=== PATIENT | male | born 1970 | race Caucasian/White ===

== ENCOUNTER 2018-08-21 10:41 | Emergency (ER) | payer BC, OTHER ==
[2018-08-21 11:13] VITALS: TEMP 97.9; O2SAT 97
[2018-08-21] MEDS ORDERED: Sodium Chloride 0.9% 500 ML IV STA (12:52)
[2018-08-21] MEDS ORDERED: Enalaprilat 2.5 MG/2 ML IV STA (12:53)
--- NOTE | 2018-08-21 12:53 | C.PDOC ---
History Of Present Illness 48 year old male, whose PMHx includes Hypertension, presents to the ED for evaluation of headache and elevated blood pressure. Patient was evaluated by his PMD, Dr. Sotkes, one week ago and given prescriptions for Tramadol and Sanchez karl. Patient states he only filled the prescription for Tramadol because he thought that was his blood pressure medication. Patient developed headache, for which he has been drinking 4-5 cups of coffee and taking Excedrin. He presents to the ED for evaluation of persistent headache and elevated blood pressure. He denies fever, chills, vision change, dizziness, nausea, vomiting, or weakness. Time Seen by Provider: 08/21/18 11:41 Chief Complaint (Nursing): High Blood Pressure History Per: Patient History/Exam Limitations: no limitations Onset/Duration Of Symptoms: Days Current Symptoms Are (Timing): Still Present Associated Symptoms: Headache. denies: Dizziness, Focal Weakness Exacerbating Factor(s): Pos: Recently Missed Doses Of Medication Additional History Per: Patient Past Medical History Reviewed: Historical Data, Nursing Documentation, Vital Signs Vital Signs: Last Vital Signs Temp 97.9 F 08/21/18 11:08 Pulse 73 08/21/18 11:45 Resp 20 08/21/18 11:08 BP 177/107 H 08/21/18 11:45 Pulse Ox 97 08/21/18 11:08 - Medical History PMH: Gastritis, HTN Surgical History: No Surg Hx Family History: States: Unknown Family Hx - Social History Hx Alcohol Use: No Hx Substance Use: No - Immunization History Hx Tetanus Toxoid Vaccination: Yes Hx Influenza Vaccination: No Hx Pneumococcal Vaccination: No Review Of Systems Constitutional: Negative for: Fever, Chills Eyes: Negative for: Vision Change Cardiovascular: Positive for: Other (elevated blood pressure ) Gastrointestinal: Negative for: Nausea, Vomiting Neurological: Positive for: Headache. Negative for: Weakness, Dizziness Physical Exam - Physical Exam Appears: Non-toxic, No Acute Distress Skin: Normal Color, Warm, Dry Head: Atraumatic, Normacephalic Eye(s): bilateral: Normal Inspection Oral Mucosa: Moist Neck: Supple Chest: Symmetrical, No Deformity, No Tenderness Cardiovascular: Rhythm Regular, No Murmur Respiratory: Normal Breath Sounds, No Rales, No Rhonchi, No Wheezing Extremity: Normal ROM, Capillary Refill (less than 2 seconds ) Neurological/Psych: Oriented x3, Normal Speech, Normal Cognition ED Course And Treatment - Laboratory Results Result Diagrams: 08/21/18 13:27 08/21/18 13:27 O2 Sat by Pulse Oximetry: 97 (on RA) Pulse Ox Interpretation: Normal Progress Note: Patient was evaluated by Dr. Stokes in the ED, who instructs patient to follow up with him after he receives treatment in the ED. Bloodwork, urinalysis, CT Head ordered. Vasotec IV and IV Fluids given. On reassessment, patient is resting comfortably, showing no signs of distress and reports an improvement in his symptoms. Patient is stable for discharge and is advised to follow up with Dr. Stokes as instructed. Disposition - Disposition Referrals: Fransisca Stokes MD [Staff Provider] - Disposition: HOME/ ROUTINE Disposition Time: 15:19 Condition: STABLE Additional Instructions: Follow up with within 1-2 days. Take your blood pressure medications every day as instructed. Avoid products (food or drinks) and medications containing caffeine and chocolate. Return to ED if feel worse. Instructions: High Blood Pressure in Adults, Headache, Adult Forms: [facility] (Cymro) Print Language: CAY[place] ISLANDER - Clinical Impression Clinical Impression: Hypertension, Headache - PA / PATTERNATOR / Resident Statement MD/DO has reviewed & agrees with the documentation as recorded. - Scribe Statement The provider has reviewed the documentation as recorded by the Scribe (Dee Wolf) All medical record entries made by the Scribe were at my direction and personally dictated by me. I have reviewed the chart and agree that the record accurately reflects my personal performance of the history, physical exam, medical decision making, and the department course for this patient. I have also personally directed, reviewed, and agree with the discharge instructions and disposition.
[2018-08-21] MEDS ORDERED: Enalaprilat 2.5 MG/2 ML ONE (13:25)
[2018-08-21 13:38] LABS: URINE BACTERIA RARE (<OCC); URINE BILIRUBIN NEGATIVE (NEGATIVE); URINE BLOOD 1+ (NEGATIVE); URINE CLARITY Clear (Clear); URINE COLOR Straw (YELLOW); URINE GLUCOSE (UA) NORMAL (Normal); URINE LEUKOCYTE ESTERASE NEG Leu/uL (Negative); URINE PROTEIN NEGATIVE (NEGATIVE); URINE UROBILINOGEN NORMAL mg/dL (0.2-1.0)
[2018-08-21 13:42] LABS: BASO % 0.5 % (0.0-2.0); EOS % 0.6 % (0.0-4.0); HEMOGLOBIN 17.9 g/dL (12.0-18.0); LYMPH # 1.1 K/uL (1.0-4.3); LYMPH % 23.4 % (20.0-40.0); MEAN CELL VOLUME 85.2 fL (80.0-94.0); MEAN CORPUSCULAR HEMOGLOBIN 29.4 pg (27.0-31.0); MEAN CORPUSCULAR HGB CONC 34.5 g/dL (33.0-37.0); MEAN PLATELET VOLUME 9.1 fL (7.2-11.7); MONO # 0.4 K/uL (0.0-0.8); MONO % 8.9 % (0.0-10.0); NEUT # 3.3 K/uL (1.8-7.0); NEUT % 66.6 % (50.0-75.0); NRBC % 0.1 % (0.0-2.0); RBC 6.11 Mil/uL (4.40-5.90); RED CELL DISTRIBUTION WIDTH 14.5 % (11.5-14.5); WHITE BLOOD COUNT 4.9 K/uL (4.8-10.8)
[2018-08-21 13:46] LABS: BLOOD UREA NITROGEN 13 mg/dL (9-20); GFR NON-AFRICAN AMERICAN > 60
[2018-08-21 13:47] LABS: ALB/GLOB RATIO 1.8 (1.0-2.1); ALBUMIN 4.8 g/dL (3.5-5.0); ALT/SGPT 62 U/L (21-72); AST/SGOT 42 U/L (17-59); CALCIUM 9.5 mg/dl (8.6-10.4)
--- NOTE | 2018-08-21 14:24 | CT ---
Date of service: 08/21/2018 PROCEDURE: CT HEAD WITHOUT CONTRAST. HISTORY: headache, elevated BP COMPARISON: None available. TECHNIQUE: Axial computed tomography images were obtained through the head/brain without intravenous contrast. Radiation dose: Total exam DLP = 1077.20 mGy-cm. This CT exam was performed using one or more of the following dose reduction techniques: Automated exposure control, adjustment of the mA and/or kV according to patient size, and/or use of iterative reconstruction technique. FINDINGS: HEMORRHAGE: No intracranial hemorrhage. BRAIN: Frank-white matter differentiation is preserved. There is no mass, mass effect or abnormal extra-axial fluid collection. There is no territorial infarction. The midline sagittal structures are normal. VENTRICLES: The ventricles are normal in size, shape and configuration. CALVARIUM: The skull base and calvarium are normal. PARANASAL SINUSES: Predominantly clear. MASTOID AIR CELLS: Predominantly clear. OTHER FINDINGS: None. IMPRESSION: No acute intracranial abnormality.
[2018-08-21] MEDS ORDERED: Oxycodone/Acetaminophen 5/325 mg Tab PO STA (14:31)
[2018-08-21] MEDS ORDERED: Oxycodone/Acetaminophen 5/325 mg Tab ONE (14:54)
[2018-08-21 16:24] VITALS: BP 137/84; PULSE 74; RESP 18
--- NOTE | 2018-08-24 10:50 | CARD ---
APPROVED REPORT Date of service: 08/21/2018 EKG Measurement Heart [id number] <Conclusion> Normal sinus rhythm Possible Left atrial enlargement Septal infarct, age undetermined Abnormal ECG
== END 2018-08-21 16:24 | disposition home or self-care (01) ==
LOC: C.ER 10:41
DX: I10 Essential (primary) hypertension (principal); R51 Headache
CPT/HCPCS: 70450; 80053; 81001; 85025; 99285; J7040

== ENCOUNTER 2019-02-03 12:45 | Emergency (ER) | payer BC ==
[2019-02-03 13:05] VITALS: RESP 18
[2019-02-03] MEDS ORDERED: Labetalol 25mg/5ml Syringe IVP STA (14:12)
--- NOTE | 2019-02-03 14:18 | C.PDOC ---
History Of Present Illness 48 y/o male with a PMHx of HTN presents to the ED for evaluation of elevated blood pressure since yesterday. Patient is currently on Losartan and admits that last week he was on a road trip and forgot to take his medication for the week. During that time patient reports drinking a lot of coffee and eating fried food. He resumed taking his medication yesterday, but noticed his pressure was markedly elevated yesterday and again today, prompting this visit. Patient notes he has had similar ED visits for this in the past. He additionally complains of low back pain for the past 3 days. Patient reports decreased urine output and is concerned about his kidneys. He denies prior hx of kidney stones. Otherwise he denies any dysuria, hematuria, fevers, chills, chest pain, SOB, headache, palpitations, dizziness, blurred or double vision. Time Seen by Provider: 02/03/19 14:01 Chief Complaint (Nursing): High Blood Pressure History Per: Patient History/Exam Limitations: no limitations Onset/Duration Of Symptoms: Days Current Symptoms Are (Timing): Still Present Quality Of Symptoms: Asymptomatic Exacerbating Factor(s): Pos: Injestion Of Caffeinated Beverages, Increased Salt/Salty Foods Past Medical History Reviewed: Historical Data, Nursing Documentation, Vital Signs Vital Signs: Last Vital Signs Temp 97.4 F L 02/03/19 13:01 Pulse 73 02/03/19 13:01 Resp 18 02/03/19 13:01 BP 183/106 H 02/03/19 13:01 Pulse Ox 97 02/03/19 13:01 - Medical History PMH: Gastritis, HTN Other PMH: Varicocele Family History: States: Unknown Family Hx - Social History Hx Alcohol Use: No Hx Substance Use: No - Immunization History Hx Tetanus Toxoid Vaccination: Yes Hx Influenza Vaccination: No Hx Pneumococcal Vaccination: No Review Of Systems Except As Marked, All Systems Reviewed And Found Negative. Constitutional: Negative for: Fever, Chills, Sweats Eyes: Negative for: Vision Change ENT: Negative for: Nose Congestion Cardiovascular: Negative for: Chest Pain, Palpitations Respiratory: Negative for: Shortness of Breath Gastrointestinal: Positive for: Abdominal Pain (suprapubic). Negative for: Nausea, Vomiting Genitourinary: Positive for: Other (Decreased urine output). Negative for: Dysuria, Hematuria Musculoskeletal: Positive for: Back Pain Skin: Negative for: Rash Neurological: Negative for: Weakness, Numbness, Change in Speech, Headache, Dizziness Physical Exam - Physical Exam Appears: Well, Non-toxic, No Acute Distress Skin: Normal Color, Warm, Dry Head: Atraumatic, Normacephalic Eye(s): bilateral: Normal Inspection, PERRL, EOMI Nose: Normal Oral Mucosa: Moist Neck: Normal ROM Chest: Symmetrical, No Deformity, No Tenderness Cardiovascular: Rhythm Regular, No Murmur Respiratory: Normal Breath Sounds, No Accessory Muscle Use, No Wheezing Gastrointestinal/Abdominal: Soft, No Tenderness, No Distention Back: No CVA Tenderness, Paraspinal Tenderness (to lumbar area, near the tailbone) Extremity: Normal ROM (x4), No Calf Tenderness, No Deformity, No Swelling Pulses: Left Dorsalis Pedis: Normal, Right Dorsalis Pedis: Normal Neurological/Psych: Oriented x3, Normal Speech, Normal Motor, Normal Sensation Gait: Steady ED Course And Treatment - Laboratory Results Result Diagrams: 02/03/19 14:59 02/03/19 14:59 O2 Sat by Pulse Oximetry: 97 (RA) Pulse Ox Interpretation: Normal Progress - Data Reviewed Data Reviewed: Lab, Diagnostic imaging, Old records Medical Decision Making Medical Decision Making: Impression: Elevated blood pressure, Back pain Blood pressure on arrival is 183/106. Plan: - BMP - CBC - UA - 20 mg IV Labetalol - 30 mg IV Toradol - Reassess Disposition Counseled Patient/Family Regarding: Studies Performed, Diagnosis, Need For Followup, Rx Given - Disposition Referrals: YOUR,PMD [Other] Disposition: HOME/ ROUTINE Disposition Time: 15:26 Condition: IMPROVED Prescriptions: Cyclobenzaprine [Flexeril] 10 mg PO TID #15 tab Ibuprofen [Motrin Tab] 800 mg PO Q6 #30 tab Instructions: High Blood Pressure (DC), Low Back Pain (DC) Forms: [facility] (S[place] Arabian), Work Excuse Print Language: ICELANDIC - Clinical Impression Clinical Impression: Low back pain, Hypertension, Noncompliance with medication regimen - Scribe Statement The provider has reviewed the documentation as recorded by the Obie Orosco Provider Attestation: All medical record entries made by the Mickeyibrachel were at my direction and personally dictated by me. I have reviewed the chart and agree that the record accurately reflects my personal performance of the history, physical exam, medical decision making, and the department course for this patient. I have also personally directed, reviewed, and agree with the discharge instructions and disposition.
[2019-02-03] MEDS ORDERED: Labetalol 5mg/ml (4ml) ONE (14:30)
[2019-02-03 15:02] LABS: BASO % 0.6 % (0.0-2.0); EOS % 0.7 % (0.0-4.0); HEMOGLOBIN 18.4 g/dL (12.0-18.0); LYMPH # 1.2 K/uL (1.0-4.3); LYMPH % 24.3 % (20.0-40.0); MEAN CELL VOLUME 87.2 fL (80.0-94.0); MEAN CORPUSCULAR HGB CONC 33.3 g/dL (33.0-37.0); MEAN PLATELET VOLUME 8.6 fL (7.2-11.7); MONO # 0.4 K/uL (0.0-0.8); NEUT # 3.2 K/uL (1.8-7.0); NEUT % 65.4 % (50.0-75.0); NRBC % 0.1 % (0.0-2.0); RBC 6.36 Mil/uL (4.40-5.90); WHITE BLOOD COUNT 4.9 K/uL (4.8-10.8)
[2019-02-03 15:11] VITALS: BP 152/86; PULSE 72
[2019-02-03 15:13] LABS: BLOOD UREA NITROGEN 10 mg/dL (9-20); CALCIUM 9.4 mg/dl (8.6-10.4); GFR NON-AFRICAN AMERICAN > 60
[2019-02-03 15:15] LABS: URINE BILIRUBIN NEGATIVE (NEGATIVE); URINE BLOOD 1+ (NEGATIVE); URINE CLARITY Clear (Clear); URINE COLOR Yellow (YELLOW); URINE GLUCOSE (UA) NORMAL (Normal); URINE LEUKOCYTE ESTERASE NEG Leu/uL (Negative); URINE PROTEIN NEGATIVE (NEGATIVE); URINE UROBILINOGEN NORMAL mg/dL (0.2-1.0)
[2019-02-03 15:27] VITALS: O2SAT 97
[2019-02-03 15:43] VITALS: TEMP 97.9
== END 2019-02-03 15:43 | disposition home or self-care (01) ==
LOC: C.ER 12:45
DX: M54.5 Low back pain (principal); I10 Essential (primary) hypertension; Z91.14 Patient's other noncompliance with medication regimen
CPT/HCPCS: 80048; 81001; 85025; 96374; 96375; 99285; J1885

== ENCOUNTER 2019-02-08 05:57 | Emergency (ER) | payer BC ==
[2019-02-08] MEDS ORDERED: Lidocaine 5% Patch TD STA (07:37)
--- NOTE | 2019-02-08 07:44 | C.PDOC ---
History Of Present Illness 48 y/o male with a PMHx of HTN presents to the ED complaining of back pain, worsening for the past week. Patient was seen here 5 days ago, and discharged home with 800mg Motrin and Flexeril. He reports taking the medications as prescribed, however the pain has worsened. Pain is now rated 10/10. Patient admits to episode of heavy lifting at work 1 week ago, after which he noticed sudden-onset of back pain. Otherwise he denies any recent fall or trauma. Patient also denies any dysuria, hematuria, fevers, chills, focal weakness, n umbness, or saddle anesthesia. Time Seen by Provider: 02/08/19 07:14 Chief Complaint (Nursing): Back Pain History Per: Patient History/Exam Limitations: no limitations Onset/Duration Of Symptoms: Days (x7) Current Symptoms Are (Timing): Worse Quality Of Discomfort: "Pain" Severity: Severe Pain Scale Rating Of: 10 Associated Symptoms: None Recent travel outside of the [place]: No Additional History Per: Prior Records Past Medical History Reviewed: Historical Data, Nursing Documentation, Vital Signs Vital Signs: Last Vital Signs Temp 99.1 F 02/08/19 07:27 Pulse 114 H 02/08/19 07:27 Resp 18 02/08/19 07:27 BP 171/93 H 02/08/19 07:27 Pulse Ox 98 02/08/19 07:27 - Medical History PMH: Gastritis, HTN Family History: States: Unknown Family Hx - Social History Hx Alcohol Use: No Hx Substance Use: No - Immunization History Hx Tetanus Toxoid Vaccination: Yes Hx Influenza Vaccination: No Hx Pneumococcal Vaccination: No Review Of Systems Constitutional: Negative for: Fever, Chills Cardiovascular: Negative for: Chest Pain Respiratory: Negative for: Shortness of Breath Gastrointestinal: Negative for: Nausea, Vomiting, Diarrhea Genitourinary: Negative for: Dysuria, Hematuria Musculoskeletal: Positive for: Back Pain. Negative for: Leg Pain Neurological: Negative for: Weakness, Numbness, Incoordination Physical Exam - Physical Exam Appears: Non-toxic, No Acute Distress, Other (Appears comfortable, speaking in full sentences) Skin: Normal Color, Warm, Dry Head: Atraumatic, Normacephalic Eye(s): bilateral: Normal Inspection, PERRL, EOMI Oral Mucosa: Moist Neck: Normal ROM Chest: Symmetrical Cardiovascular: Rhythm Regular, No Murmur Respiratory: Normal Breath Sounds, No Accessory Muscle Use, No Wheezing Gastrointestinal/Abdominal: Soft, No Tenderness, No Distention Back: No CVA Tenderness, No Vertebral Tenderness, Paraspinal Tenderness (pa ralumbar tenderness on palpation) Extremity: Bilateral: Atraumatic, Normal Color And Temperature, Normal ROM Pulses: Left Dorsalis Pedis: Normal, Right Dorsalis Pedis: Normal Neurological/Psych: Oriented x3, Normal Cranial Nerves, Normal Motor, Normal Sensation Gait: Steady ED Course And Treatment O2 Sat by Pulse Oximetry: 98 (on RA) Pulse Ox Interpretation: Normal Progress Note: X-ray obtained of ls spine. Patient given 5 mg PO valium, 60 mg IM Toradol, and Lidoderm patch x1. Disposition Counseled Patient/Family Regarding: Studies Performed, Diagnosis, Need For F ollowup, Rx Given - Disposition Referrals: Fransisca Stokes MD [Staff Provider] - Disposition: HOME/ ROUTINE Disposition Time: 09:10 Condition: STABLE Additional Instructions: FOLLOW UP WITH YOUR PRIMARY DOCTOR IN 1-2 DAYS USE MEDICATIONS NEEDED FOR PAIN RETURN TO EMERGENCY ROOM IF YOUR SYMPTOMS BECOME WORSE SEGUIR CON WHARTON MDICO PRIMARIO EN 1-2 ALCANTAR USAR MEDICAMENTOS ALEC SE NECESITA PARA EL DOLOR VUELVA A LA ASTER DE EMERGENCIA SI NANCY SNTOMAS SE HACEN PEOR Prescriptions: Diazepam [Valium] 2 mg PO BID PRN #14 tablet PRN Reason: musle spasm Lidocaine 5% [Lidoderm] 1 patch TOP DAILY PRN #10 patch PRN Reason: pain Naproxen [Naprosyn] 1 tab PO BID PRN #25 tab PRN Reason: Pain Instructions: Low Back Pain (DC) Forms: [facility] (Burmese) Print Language: ECUADOREAN - Clinical Impression Clinical Impression: Lumbar sprain - Scribe Statement The provider has reviewed the documentation as recorded by the Obie Orosco Provider Attestation: All medical record entries made by the Mickeyibrachel were at my direction and personally dictated by me. I have reviewed the chart and agree that the record accurately reflects my personal performance of the history, physical exam, medical decision making, and the department course for this patient. I have also personally directed, reviewed, and agree with the discharge instructions and disposition.
[2019-02-08] MEDS ORDERED: Lidocaine 5% Patch TD ONE (08:12)
[2019-02-08 08:48] VITALS: BP 149/92; PULSE 104; RESP 16; TEMP 98.9
[2019-02-08 09:09] VITALS: O2SAT 98
--- NOTE | 2019-02-08 09:11 | RAD ---
Date of service: 02/08/2019 PROCEDURE: Radiographs of the Lumbar Spine. HISTORY: Low back pain after lifting COMPARISON: Comparison made with radiographs of the lumbar spine 06/21/2020. FINDINGS: BONES: No evidence of acute compression fractures no retropulsed fragments. Vertebral bodies exhibit normal stature. Vertebral bodies and facets normally aligned. DISC SPACES: There is mild posterior disc space narrowing seen at the L5-S1 level. Facet joints mildly hypertrophic at the L5-S1 through the L3-L4 levels in decreasing order of severity OTHER FINDINGS: None. IMPRESSION: No acute fractures. Minor degenerative spondylosis.
== END 2019-02-08 09:40 | disposition home or self-care (01) ==
LOC: C.ER 05:57
DX: S33.5XXA Sprain of ligaments of lumbar spine, initial encounter (principal); X58.XXXA Exposure to other specified factors, initial encounter
CPT/HCPCS: 72100; 96372; 99284; J1885